=== PATIENT | female | born 1940 | race African-American/Black ===

== ENCOUNTER 2016-12-25 12:12 | Emergency (ER) | payer MEDICARE, BC ==
[~2016-12-25] VITALS: Ht 162.6 cm; Wt 68.0 kg
--- NOTE | ~2016-12-25 | EKG ---
PATIENT: KAISER ORDONEZ UNIT #: [id number] Ventricular Rate: 72 BPM Atrial Rate: 72 BPM P-R Interval: 148 ms QRS Duration: 70 ms Q-T Interval: 372 ms QTC Calculation(Bezet): 407 ms P [place]: 60 degrees Calculated R [place]: 67 degrees Calculated T [place]: 63 degrees Diagnosis Line: Normal sinus rhythm Diagnosis Line: Normal ECG Diagnosis Line: No previous ECGs available Diagnosis Line: Confirmed by GEETA PASCUAL MD ([id number]) on 12/28/2016 Diagnosis Line: 7:00:16 AM INTERPRETING MD: SAMARA DRISCOLL
--- NOTE | ~2016-12-25 | CR72 ---
[facility] A Service of [facility] RADIOLOGY TEXT RESULTS PATIENT: KAISER ORDONEZ LOCATION: [facility] : 38 UNIT #: [id number] AGE: [address]: Quincy Hall MD SEX: F ORDER DR: [id number] [facility] [address] [place], [place] [address] [id number] E MR#: [id number] Acc #: [id number] NAME: KAISER ORDONEZ : 1940 SEX: F STUDY DATE/TIME: 12/25/2016 13:03 UNIT: [facility] ROOM: STUDY DESCRIPTION: CR Chest Single View Portable Attending Physician: Quincy Hall M.D. Ordering Physician: Quincy Hall M.D. Primary Care Physician: Stephany Lyons M.D. MEDICAL IMAGING REPORT This report is preliminary unless electronic signature is present EXAM Portable chest. INDICATION Cough and congestion. This is actually chronic problem. The patient reports is worse since yesterday. FINDINGS There may be some mild cardiomegaly without evidence of vascular congestion. There is a background changes of COPD. No pneumothorax or pleural effusion is identified. No acute infiltrates are seen IMPRESSION No acute disease Dictated by... Ute Vicente M.D. THIS IS AN ELECTRONICALLY VERIFIED REPORT Ute Vicente M.D. at 12/26/2016 10:25 AM AFF/ea TD: 12/25/2016 16:04 JOB #: [id number] MEDICAL IMAGING REPORT Page 1 of 1 COPY
[2016-12-25 12:59] LABS: BASOPHIL# 0.1 X10e3 (0-0.3); EOSINOPHIL# 0.5 X10e3 (0-0.7); EOSINOPHIL% 7.3 % (0.0-7.0); HEMATOCRIT 36.8 % (35.0-45.0); LYMPHOCYTE# 1.5 X10e3 (1.0-3.5); LYMPHOCYTE% 21.7 % (17.0-45.0); MEAN CELL VOLUME 87.4 FL (83-96); MEAN CORPUSCULAR HEMOGLOBIN 28.6 PG (28-34); MEAN CORPUSCULAR HGB CONC 32.7 g/dL (30-36); MONOCYTE# 0.6 X10e3 (0-1.0); MONOCYTE% 9.6 % (3.0-12.0); NEUTROPHIL% 60.4 % (40-75); PLATELET COUNT 356 X10e3 (140-420); RED BLOOD COUNT 4.21 X10e (3.90-5.30); RED CELL DISTRIBUTION WIDTH 15.1 % (11.0-15.5); WHITE BLOOD COUNT 6.7 X10e3 (4.0-10.5)
[2016-12-25 13:12] LABS: PARTIAL THROMBOPLASTIN TIME 25.9 SECONDS (23.5-31.3); PROTHROMBIN TIME (PATIENT) 10.8 SECONDS (10.0-11.7)
[2016-12-25 13:12] LABS: POC - CKMB 4.5 ng/mL (0.0-7.9); POC - TROPONIN <0.05 ng/mL (<=0.05)
[2016-12-25 13:13] LABS: DIFF IND NO
[2016-12-25 13:52] LABS: ALBUMIN SERUM 3.7 g/dL (3.5-5.0); BILIRUBIN, DIRECT 0.2 mg/dL (0.0-0.2); BILIRUBIN,INDIRECT 0.1 mg/dL (0.0-0.9); BILIRUBIN,TOTAL 0.3 mg/dL (0.2-2.0); BUN/CREATININE RATIO 18.75; CALCIUM SERUM 8.8 mg/dL (8.4-10.2); CREATININE SERUM 0.8 mg/dL (0.6-1.4); GLOM FILT RATE Estimated 82.5 mL/min (>60); POTASSIUM 4.6 mmol/L (3.5-5.1); PROTEIN TOTAL SERUM 6.3 g/dL (6.0-8.3)
[2016-12-25 14:50] LABS: POC - CKMB 3.2 ng/mL (0.0-7.9); POC - TROPONIN <0.05 ng/mL (<=0.05)
== END 2016-12-25 15:00 | disposition home or self-care (01) ==
LOC: CED 12:12
PROVIDERS: Emergency Medicine
DX: J44.1 Chronic obstructive pulmonary disease with (acute) exacerbation (principal); I10 Essential (primary) hypertension; Z90.710 Acquired absence of both cervix and uterus
CPT/HCPCS: 36415; 71010; 80048; 80076; 82553; 84484; 85025; 85610; 85730; 87040; 93005; 94640; 96374; 99285; J2930